=== PATIENT | male | born 1940 | race Caucasian/White ===

== ENCOUNTER 2022-10-14 17:34 | Emergency (ER) | payer MEDICAID ==
[~2022-10-14] VITALS: Ht 152.4 cm; Wt 54.4 kg
--- NOTE | 2022-10-14 17:45 | NUR ---
AT BEDSIDE FOR EVAL.
--- NOTE | 2022-10-14 17:46 | NUR ---
[facility] "He was in [place] yesterday-Reyes was place BUT now leaking.
--- NOTE | 2022-10-14 18:46 | NUR ---
URINE SAMPLE SENT TO LAB
[2022-10-14 19:06] LABS: BILIRUBIN,URINE 1+ (NEGATIVE); COLOR,URINE AMBER (YELLOW); LEUKOCYTE ESTERASE ,URINE 1+ (NEGATIVE); NITRITE, URINE NEGATIVE (NEGATIVE); PH,URINE 5.5 (5.0-8.0); PROTEIN,URINE 2+ mg/dl (NEGATIVE); UGLUCOSE NEGATIVE (NEGATIVE); UROBILINOGEN,URINE 0.2 EU/dL (0.2)
[2022-10-14 19:22] LABS: BACTERIA,URINE Few /HPF (None Seen); RBC,URINE 81-100 /HPF (0-2)
[2022-10-14 19:23] LABS: SQUAMOUS EPITHELIAL CELL,UR Few /HPF (None Seen)
[2022-10-14] MEDS ORDERED: CEPH500C2 PO (20:02)
--- NOTE | 2022-10-14 20:27 | NUR ---
Patient discharged to home in stable condition. Written and verbal after care instructions given. Patient and Son verbalizes understanding of instruction.
[2022-10-14 20:34] VITALS: BP 120/57
== END 2022-10-14 20:27 | disposition home or self-care (01) ==
LOC: ER 17:44
DX: N39.0 Urinary tract infection, site not specified (principal); R33.9 Retention of urine, unspecified; I11.0 Hypertensive heart disease with heart failure; I50.9 Heart failure, unspecified; E78.5 Hyperlipidemia, unspecified; J44.9 Chronic obstructive pulmonary disease, unspecified; Z96.649 Presence of unspecified artificial hip joint
CPT/HCPCS: 81001; 87086-TC

== ENCOUNTER 2022-11-12 15:45 | Emergency (ER) | payer MEDICAID ==
[~2022-11-12] VITALS: Ht 170.2 cm; Wt 81.6 kg
[~2022-11-12 15:45] MED LIST: CEPH500C2 PO
--- NOTE | 2022-11-12 16:30 | NUR ---
FC 15FR INSERTED WITHOUT COMPLICATION. 10ML FLASHBACK URINE CLEAR WITH SOME CLOTS. UA WILL BE COLLECTED PER PROVIDER
--- NOTE | 2022-11-12 16:35 | NUR ---
UA COLLECTED AND READY FOR PICKUP
[2022-11-12 17:18] VITALS: BP 141/75
[2022-11-12 17:49] LABS: BILIRUBIN,URINE NEGATIVE (NEGATIVE); COLOR,URINE YELLOW (YELLOW); LEUKOCYTE ESTERASE ,URINE 1+ (NEGATIVE); NITRITE, URINE NEGATIVE (NEGATIVE); PROTEIN,URINE 2+ mg/dl (NEGATIVE); UGLUCOSE NEGATIVE (NEGATIVE); UROBILINOGEN,URINE 0.2 EU/dL (0.2)
[2022-11-12 20:35] LABS: RBC,URINE 81-100 /HPF (0-2)
[2022-11-12 20:42] LABS: BACTERIA,URINE Few /HPF (None Seen)
[2022-11-12 20:43] LABS: SQUAMOUS EPITHELIAL CELL,UR Few /HPF (None Seen)
--- NOTE | 2022-11-12 21:44 | NUR ---
NOT ENOUGH URINE FOR CULTURE, PER DENIS FROM LAB
== END 2022-11-12 17:15 | disposition home or self-care (01) ==
LOC: ER 15:48
DX: R31.9 Hematuria, unspecified (principal); T83.83XA Hemorrhage due to genitourinary prosthetic devices, implants and grafts, initial encounter; I11.0 Hypertensive heart disease with heart failure; I50.9 Heart failure, unspecified; E78.00 Pure hypercholesterolemia, unspecified; J44.9 Chronic obstructive pulmonary disease, unspecified; Z79.899 Other long term (current) drug therapy; Y83.9 Surgical procedure, unspecified as the cause of abnormal reaction of the patient, or of later complication, without mention of misadventure at the time of the procedure; Y92.89 Other specified places as the place of occurrence of the external cause
CPT/HCPCS: 81001